=== PATIENT | female | born 1940 ===

== ENCOUNTER 2017-09-23 17:19 | Emergency (ER) | payer MEDICARE ==
[2017-09-23 17:19] VITALS: BMI 23.0
[2017-09-23 17:31] VITALS: RESP 16
[2017-09-23] MEDS ORDERED: Sodium Chloride 0.9% 1,000 ML IV STA (18:00)
--- NOTE | 2017-09-23 18:02 | ED PDOC ---
HPI: Abdomen Time Seen by Provider: 09/23/17 17:53 Chief Complaint (Nursing): Abdominal Pain History Per: Patient Onset/Duration Of Symptoms: Other (1 year) Current Symptoms Are (Timing): Intermittent Episodes Severity: Mild Location Of Pain/Discomfort: Epigastric Quality Of Discomfort: Burning Associated Symptoms: denies: Fever, Nausea, Vomiting, Diarrhea, Urinary Symptoms Additional Complaint(s): Burning epigastric abd pain intermittently x 1 year. No NVD. Denies fever. Worse after eating. Denies urinary sxs Past Medical History Vital Signs: Last Vital Signs Temp 98.3 F 09/23/17 17:30 Pulse 69 09/23/17 17:30 Resp 16 09/23/17 17:30 BP 136/78 09/23/17 17:30 Pulse Ox 98 09/23/17 18:02 - Medical History PMH: Arthritis, GERD, HTN, Pneumonia Denies: HIV, Chronic Kidney Disease - Surgical History Surgical History: Appendectomy - Family History Family History: States: Unknown Family Hx - Home Medications Home Medications: Ambulatory Orders Medication Instructions Recorded Valsartan [Diovan] 160 mg PO DAILY 05/16/16 Omeprazole 40 mg PO DAILY 05/21/16 Ciprofloxacin [Cipro] 500 mg PO Q12 #14 tab 05/27/16 Metronidazole [Flagyl] 500 mg PO Q8 #21 tablet 05/27/16 oxyCODONE/Acetaminophen [Percocet 1 tab PO Q6 #20 tab 05/27/16 5/325 mg Tab] Pantoprazole Sodium [Protonix] 40 mg PO DAILY #30 tablet. 09/23/17 - Allergies Allergies/Adverse Reactions: Allergies Allergy/AdvReac Type Severity Reaction Status Date / Time Penicillins Allergy Mild RASH Verified 09/23/17 17:29 Review of Systems ROS Statement: Except As Marked, All Systems Reviewed And Found Negative Gastrointestinal: Positive for: Abdominal Pain Physical Exam - Reviewed Nursing Documentation Reviewed: Yes Vital Signs Reviewed: Yes - Physical Exam Appears: Positive for: Non-toxic, No Acute Distress Head Exam: Positive for: ATRAUMATIC, NORMAL INSPECTION, NORMOCEPHALIC Skin: Positive for: Normal Color, Warm, DRY Eye Exam: Positive for: EOMI, Normal appearance, PERRL ENT: Positive for: Normal ENT Inspection Neck: Positive for: Normal, Painless ROM Cardiovascular/Chest: Positive for: Regular Rate, Rhythm Respiratory: Positive for: CNT, Normal Breath Sounds Gastrointestinal/Abdominal: Positive for: Soft, Tenderness (Epigastric) Back: Positive for: Normal Inspection Extremity: Positive for: Normal ROM Neurologic/Psych: Positive for: Alert, Oriented - Laboratory Results Result Diagrams: 09/23/17 18:20 09/23/17 18:20 - ECG O2 Sat by Pulse Oximetry: 98 Disposition - Clinical Impression Clinical Impression: Gastritis - Patient ED Disposition Is Patient to be Admitted: No Counseled Patient/Family Regarding: Studies Performed, Diagnosis, Need For Followup, Rx Given - Disposition Referrals: [facility] [Outside] Macey Hewitt MD [Medical Doctor] - Disposition: Routine/Home Disposition Time: 20:26 Condition: FAIR Prescriptions: Pantoprazole Sodium [Protonix] 40 mg PO DAILY #30 tablet.dr Instructions: Gastritis Forms: [facility] (Sami) Print Language: FRISIAN
[2017-09-23 18:32] LABS: BASO % 0.8 % (0.0-2.0); EOS # 0.2 K/uL (0.0-0.7); EOS % 3.6 % (0.0-4.0); HEMOGLOBIN 10.7 g/dL (12.0-16.0); LYMPH # 2.1 K/uL (1.0-4.3); LYMPH % 38.3 % (20.0-40.0); MEAN CORPUSCULAR HEMOGLOBIN 27.3 pg (27.0-31.0); MEAN CORPUSCULAR HGB CONC 33.2 g/dL (33.0-37.0); MEAN PLATELET VOLUME 8.9 fl (7.2-11.7); MONO # 0.5 K/uL (0.0-0.8); NEUT # 2.6 K/uL (1.8-7.0); NEUT % 47.3 % (50.0-75.0); RBC 3.92 Mil/uL (3.80-5.20); RED CELL DISTRIBUTION WIDTH 15.6 % (11.5-14.5); WHITE BLOOD COUNT 5.4 K/uL (4.8-10.8)
[2017-09-23 19:04] LABS: ALT/SGPT 20 U/L (9-52); AST/SGOT 37 U/L (14-36); BLOOD UREA NITROGEN 19 mg/dl (7-17); GFR AFRICAN-AMERICAN > 60; GFR NON-AFRICAN AMERICAN > 60; LIPASE 71 U/L (23-300)
[2017-09-23 21:21] VITALS: BP 142/80; PULSE 78; TEMP 97.8; O2SAT 97
== END 2017-09-23 21:21 | disposition home or self-care (01) ==
LOC: H.ER 17:19
DX: K29.70 Gastritis, unspecified, without bleeding (principal); I10 Essential (primary) hypertension; K21.9 Gastro-esophageal reflux disease without esophagitis; Z88.0 Allergy status to penicillin
CPT/HCPCS: 80053; 83690; 85025; 96374; 99283; J7030